=== PATIENT | female | born 1970 | race African-American/Black ===

== ENCOUNTER 2019-05-03 10:10 | Inpatient (IN) | payer BC, OTHER ==
[~2019-05-03] VITALS: Ht 157.5 cm; Wt 63.5 kg
[~2019-05-03 10:10] MED LIST: AUGMENTIN 875-1 EAC1 ORAL
--- NOTE | 2019-05-03 10:15 | NUR ---
ED Nurse Note: Patient walked into Ed from home c/o headaches for 1 month. patient reports it starts from her frontal head and then radiates to the back of her head, 03/25. patient reports she took excedrin earlier today which did not help. patient is alert awake x4 ambulatory steady gait, breathing unlabored and even, speaking in full sentences. patient's BP initially high SBP of 220's ERMD at bedside. patient placed on a bus monitor, on a hospital gown.
[2019-05-03 10:24] VITALS: BP 218/126
[2019-05-03] MEDS ORDERED: Metoclopramide 10mg/2ml Inj IVP ONE (10:30)
[2019-05-03] MEDS ORDERED: DiphenhydrAMINE 50mg/ml Inj IVP ONE (10:30)
[2019-05-03] MEDS ORDERED: Acetaminophen 500mg (ES) tab ORAL ONE (10:30)
--- NOTE | 2019-05-03 10:46 | NUR ---
ED Nurse Note: patient taken to CT
[2019-05-03 10:54] LABS: BASOPHILS % (AUTO) 1.6 % (0.0-2.0); HEMATOCRIT 44.9 % (37.0-47.0); HEMOGLOBIN 14.8 G/DL (12.0-16.0); LYMPHOCYTES % (AUTO) 33.2 % (20.0-45.0); MEAN CORPUSCULAR VOLUME 89 FL (80-99); MONOCYTES % (AUTO) 6.3 % (1.0-10.0); NEUTROPHILS % (AUTO) 58.9 % (45.0-75.0); PLATELET COUNT 418 K/UL (150-450); RED BLOOD COUNT 5.05 M/UL (4.20-5.40); RED CELL DISTRIBUTION WIDTH 11.4 % (11.6-14.8); WHITE BLOOD COUNT 5.4 K/UL (4.8-10.8)
[2019-05-03 10:56] LABS: ANION GAP 5 mmol/L (5-15); BLOOD UREA NITROGEN 5 mg/dL (7-18); CALCIUM 8.7 MG/DL (8.5-10.1); CARBON DIOXIDE 32 MMOL/L (21-32); CHLORIDE 102 MMOL/L (98-107); CREATININE 0.9 MG/DL (0.55-1.30); POTASSIUM 4.5 MMOL/L (3.5-5.1); SODIUM 139 MMOL/L (136-145)
--- NOTE | 2019-05-03 10:57 | NUR ---
ED Nurse Note: patient came back from CT scan.
[2019-05-03 11:00] LABS: ALANINE AMINOTRANSFERASE 26 U/L (12-78); ALBUMIN 4.5 G/DL (3.4-5.0); ALBUMIN/GLOBULIN RATIO 1.3 (1.0-2.7); ALKALINE PHOSPHATASE 50 U/L (46-116); ASPARTATE AMINO TRANSFERASE 18 U/L (15-37); BILIRUBIN,TOTAL 0.5 MG/DL (0.2-1.0)
--- NOTE | 2019-05-03 11:12 | Diagnostic Imaging Report ---
Indications: Headache Technique: Spiral acquisitions obtained through the brain. Angled axial and coronal 5 x 5 mm slices were reconstructed. Total dose length product 1426 mGycm. CTDI vol(s) 62 mGy. Dose reduction achieved using automated exposure control Comparison: None. Findings: No acute intracranial hemorrhage or edema. No mass effect nor midline shift. Normal size ventricles and extra-axial CSF spaces. There is minimal periventricular deep white matter low-attenuation. Otherwise normal marmolejo-white differentiation. Intact calvarium. Visualized orbits and sinuses are unremarkable. The mastoids are clear Impression: Negative for acute cranial bleed or mass effect Minimal periventricular deep white matter low-attenuation, most likely on the basis of chronic microvascular ischemic change The CT scanner at [facility] is accredited by the [employer] and the scans are performed using protocols designed to limit radiation exposure to as low as reasonably achievable to attain images of sufficient resolution adequate for diagnostic evaluation.
--- NOTE | 2019-05-03 11:13 | Diagnostic Imaging Report ---
Indication: Chest pain Technique: One view of the chest Comparison: 02/08/2015 Findings: Lungs and pleural spaces are clear. Heart size is normal. No significant interim change Impression: No acute process
[2019-05-03] MEDS ORDERED: Ketorolac 30mg Inj IV ONE (11:15)
[2019-05-03 11:44] LABS: APPEARANCE,URINE CLEAR; BILIRUBIN, URINE NEGATIVE (NEGATIVE); COLOR,URINE PALE YELLOW; GLUCOSE, URINE (UA) NEGATIVE (NEGATIVE); KETONES,URINE NEGATIVE (NEGATIVE); LEUKOCYTE ESTERASE ,URINE NEGATIVE (NEGATIVE); NITRITE,URINE NEGATIVE (NEGATIVE); PH,URINE 8 (4.5-8.0); PROTEIN,URINE NEGATIVE (NEGATIVE); UROBILINOGEN,URINE NORMAL MG/DL (0.0-1.0)
[2019-05-03 12:01] VITALS: BP 176/93
--- NOTE | 2019-05-03 12:06 | Emergency Room Report ---
History of Present Illness General Chief Complaint: Headache Source: Patient Present Illness HPI 48-year-old female presents ED for evaluation. Complaining of headache x1 month. Frontal, throbbing, nonradiating. States that she takes over-the- counter medications without relief. Denies nausea or vomiting. Denies photophobia. Denies neck stiffness. In triage systolic BP greater than 200. Patient denies any prior history of hypertension. Does not see a PMD. Does not take medications. Denies drug use. Denies chest pain or shortness of breath. No other aggravating relieving factors. Denies any other associated symptoms Allergies: Coded Allergies: No Known Allergies (Unverified , 02/08/15) Patient History Past Medical History: none Past Surgical History: none Pertinent Family History: none Social History: Denies: smoking, alcohol use, drug use Last Menstrual Period: 03/30/19 Now: No Immunizations: UTD Reviewed Nursing Documentation: PMH: Agreed; PSxH: Agreed Nursing Documentation-PMH Past Medical History: No Stated History Hx Cardiac Problems: No Hx Cancer: No Hx Gastrointestinal Problems: No Hx Neurological Problems: No Review of Systems All Other Systems: negative except mentioned in HPI Physical Exam Vital Signs Date Time Temp Pulse Resp B/P (MAP) Pulse Ox O2 Delivery O2 Flow Rate FiO2 05/03/19 10:12 98.1 78 16 238/160 (186) 100 Room Air Sp02 EP Interpretation: reviewed, normal General Appearance: no apparent distress, alert, GCS 15, non-toxic Head: normocephalic, atraumatic Eyes: bilateral eye normal inspection, bilateral eye PERRL ENT: hearing grossly normal, normal pharynx, no angioedema, normal voice Neck: full range of motion, supple, no meningismus, supple/symm/no masses Respiratory: chest non-tender, lungs clear, normal breath sounds, speaking full sentences Cardiovascular #1: regular rate, rhythm, no edema Cardiovascular #2: 2+ carotid (R), 2+ carotid (L), 2+ radial (R), 2+ radial (L) , 2+ dorsalis pedis (R), 2+ dorsalis pedis (L) Gastrointestinal: normal bowel sounds, non tender, soft, non-distended, no guarding, no rebound Rectal: deferred Genitourinary: normal inspection, no CVA tenderness Musculoskeletal: back normal, gait/station normal, normal range of motion, non- tender Neurologic: alert, oriented x3, responsive, motor strength/tone normal, sensory intact, speech normal Psychiatric: judgement/insight normal, memory normal, mood/affect normal, no suicidal/homicidal ideation Reflexes: 3+ bicep (R), 3+ bicep (L), 3+ tricep (R), 3+ tricep (L), 3+ knee (R) , 3+ knee (L) Lymphatic: no adenopathy Procedures Critical Care Time Critical Care Time i. I feel this is a highly complex case requiring extensive working including EKG/Rhythm strip, Xray/CT/US, Blood/urine lab work, repeat exams while in ED, and administration of strong opiates/narcotics for pain control, admission to hospital or close patient follow up. Total time: 45 min bedside evaluation and treatment excludes procedures (EKG). Reason for critical care: hypertensive urgency Possible complications: hypotension, hypertension, [place], shock, arrhythmias, metabolic acidosis, end organ damage, respiratory failure. Interventions: labs, IVFS, EKG, CXR, CT head, hydralazine. BP monitoring Course: Presenting with headache. BP systolic greater than 200. CT head negative. No focal neurological deficits. Troponin negative. EKGnormal sinus rhythm no acute ischemic changes. Given hydralazine with BP improved. Consultations: nursing staff, EMS, family Performed by: Dr Vang Tolerated well condition = serious j. because of unstable vital signs this patient had a condition that could potentially threaten life or limb. I feel this is a critical patient who required my full attention while patient was considered critical. Total Critical Care Time excluding procedures was greater than 45 minutes Medical Decision Making Diagnostic Impression: Primary Impression: Hypertensive urgency Additional Impression: Headache Qualified Codes: R51 - Headache ER Course Hospital Course 48-year-old female presents ED complaining of headache, SBP > 200 Differential diagnoses include: [place]/unstable angina, CVA/TIA, hypertensive urgency Clinical course Patient placed on stretcher. on monitoring and evaluation advisor. After initial history and physical I ordered labs, EKG, chest x-ray, CT Head labs reviewed- no leukocytosis, hemoglobin/hematocrit stable, electrolytes okay , troponins negative. Chest x-ray- unremarkable EKG - NSR, no acute ischemic changes interpreted by me CT head negative Patient required multiple rounds of BP meds to get BP under control. Case discussed with Dr. Cates and he agreed to accept the patient to his service for further care and support I. I feel this is a highly complex case requiring extensive working including EKG/Rhythm strip, Xray/CT/US, Blood/urine lab work, repeat exams while in ED, and administration of strong opiates/narcotics for pain control, admission to hospital or close patient follow up. Diagnosis - hypertensive urgency, headache admitted to telemetry in serious condition Labs Test 05/03/19 10:25 05/03/19 11:22 White Blood Count 5.4 K/UL (4.8-10.8) Red Blood Count 5.05 M/UL (4.20-5.40) Hemoglobin 14.8 G/DL (12.0-16.0) Hematocrit 44.9 % (37.0-47.0) Mean Corpuscular Volume 89 FL (80-99) Mean Corpuscular Hemoglobin 29.3 PG (27.0-31.0) Mean Corpuscular Hemoglobin Concent 32.9 G/DL (32.0-36.0) Red Cell Distribution Width 11.4 % (11.6-14.8) Platelet Count 418 K/UL (150-450) Mean Platelet Volume 6.3 FL (6.5-10.1) Neutrophils (%) (Auto) 58.9 % (45.0-75.0) Lymphocytes (%) (Auto) 33.2 % (20.0-45.0) Monocytes (%) (Auto) 6.3 % (1.0-10.0) Eosinophils (%) (Auto) 0.0 % (0.0-3.0) Basophils (%) (Auto) 1.6 % (0.0-2.0) Sodium Level 139 MMOL/L (136-145) Potassium Level 4.5 MMOL/L (3.5-5.1) Chloride Level 102 MMOL/L (98-107) Carbon Dioxide Level 32 MMOL/L (21-32) Anion Gap 5 mmol/L (5-15) Blood Urea Nitrogen 5 mg/dL (7-18) Creatinine 0.9 MG/DL (0.55-1.30) Estimat Glomerular Filtration Rate > 60 mL/min (>60) Glucose Level 121 MG/DL (74-106) Calcium Level 8.7 MG/DL (8.5-10.1) Total Bilirubin 0.5 MG/DL (0.2-1.0) Aspartate Amino Transf (AST/SGOT) 18 U/L (15-37) Alanine Aminotransferase (ALT/SGPT) 26 U/L (12-78) Alkaline Phosphatase 50 U/L (46-116) Troponin I 0.000 ng/mL (0.000-0.056) Total Protein 8.0 G/DL (6.4-8.2) Albumin 4.5 G/DL (3.4-5.0) Globulin 3.5 g/dL Albumin/Globulin Ratio 1.3 (1.0-2.7) Urine Color Pale yellow Urine Appearance Clear Urine pH 8 (4.5-8.0) Urine Specific [place] 1.010 (1.005-1.035) Urine Protein Negative (NEGATIVE) Urine Glucose (UA) Negative (NEGATIVE) Urine Ketones Negative (NEGATIVE) Urine Blood 5+ (NEGATIVE) Urine Nitrite Negative (NEGATIVE) Urine Bilirubin Negative (NEGATIVE) Urine Urobilinogen Normal MG/DL (0.0-1.0) Urine Leukocyte Esterase Negative (NEGATIVE) Urine RBC 2-4 /HPF (0 - 2) Urine WBC 0 /HPF (0 - 2) Urine Squamous Epithelial Cells Occasional /LPF Urine Bacteria Occasional /HPF (NONE) Urine Mucus Occasional /LPF Urine HCG, Qualitative Negative (NEGATIVE) Urine Opiates Screen Negative (NEGATIVE) Urine Barbiturates Screen Negative (NEGATIVE) Phencyclidine (PCP) Screen Negative (NEGATIVE) Urine Amphetamines Screen Negative (NEGATIVE) Urine Benzodiazepines Screen Negative (NEGATIVE) Urine Cocaine Screen Negative (NEGATIVE) Urine Marijuana (THC) Screen Negative (NEGATIVE) EKG Diagnostic Results Rate: normal Rhythm: NSR ST Segments: no acute changes ASA given to the pt in ED: No Rhythm Strip Diag. Results EP Interpretation: yes Rhythm: NSR, no PVC's, no ectopy Chest X-Ray Diagnostic Results Chest X-Ray Diagnostic Results : Chest X-Ray Ordered: Yes # of Views/Limited/Complete: 1 View Indication: Other EP Interpretation: Yes Interpretation: no consolidation, no effusion, no pneumothorax, no acute cardiopulmonary disease Impression: No acute disease Electronically Signed by: Electronically signed by Eleazar Vang MD CT/MRI/US Diagnostic Results CT/MRI/US Diagnostic Results : Imaging Test Ordered: CT Head Impression Comparison: None. Findings: No acute intracranial hemorrhage or edema. No mass effect nor midline shift. Normal size ventricles and extra-axial CSF spaces. There is minimal periventricular deep white matter low-attenuation. Otherwise normal marmolejo-white differentiation. Intact calvarium. Visualized orbits and sinuses are unremarkable. The mastoids are clear Last Vital Signs Date Time Temp Pulse Resp B/P (MAP) Pulse Ox O2 Delivery O2 Flow Rate FiO2 05/03/19 11:22 210/126 05/03/19 10:24 98.1 71 15 100 Room Air Status: improved Disposition: ADMITTED INPATIENT Condition: Serious Referrals: NON PHYSICIAN (PCP) Eleazar Vang MD May 03, 2019 12:06
[2019-05-03] MEDS ORDERED: NKM (12:33)
[2019-05-03 12:45] VITALS: BP 157/88
--- NOTE | 2019-05-03 14:19 | NUR ---
ED Nurse Note: Report given to Claudia STEIN, endorsed all plan of care to Claudia RODGERS.
[2019-05-03 14:30] VITALS: BP 146/100
--- NOTE | 2019-05-03 14:35 | NUR ---
ED Nurse Note: patient transferred to 2E with all of her belongings on ACLS protocol.
--- NOTE | 2019-05-03 14:50 | NUR ---
NURSE NOTES: pt admitted from the ED. Pt alert and oriented AX04. Pt on school bus monitor has no signs of cardiac or respiratory distress at this time. pt was oriented to her room. Pt bed is locked and in lowest position. Call light is within reach. Pt complaining of headache. Ice bags were placed on head and pt stated they are working. Pt belonging were signed by pt. pt has 2 cell phs at bed side. V/S within normal limits 177/99 T 98.1 HR79 o2100, R18.
--- NOTE | 2019-05-03 16:14 | NUR ---
NURSE NOTES: Call dr. Cates for orders L/m waiting for response.
--- NOTE | 2019-05-03 19:45 | NUR ---
NURSE NOTES: Received pt and report from ANA MARIA Redmond. Observed pt resting in bed with both eyes open and family member at bedside. Pt is A/Ox4. ekg monitor is in placed, IV site intact, asymptomatic, and patent. Bed is in the lowest position and locked. Call light and bedside table within reach. No signs/symptoms of acute distress noted at this time. Will continue plan of care.
--- NOTE | 2019-05-03 19:55 | NUR ---
HAND-OFF: Report given to Zee/rn, pt in stable condition.
[2019-05-03 20:00] VITALS: BP 128/86
--- NOTE | 2019-05-03 20:31 | Consultation ---
DATE OF CONSULTATION: 05/03/2019 CARDIOLOGY CONSULTATION CONSULTING PHYSICIAN: David Gao M.D. REQUESTING PHYSICIAN: Aleksandr Cates M.D. REASON FOR CONSULTATION: Hypertensive urgency. HISTORY OF PRESENT ILLNESS: This is a pleasant 48-year-old female. She has never been diagnosed with hypertension. She was hospitalized here about 4 years ago for an appendectomy. At that time, it was told that her blood pressure was a "little high" and should be followed. However subsequently on all of her other medical evaluations, she has not been told of any significant blood pressure elevation. Over the past 2 months, she has had intermittent headaches. She also noted more severe ones over the past 2 days especially today. Her menstrual cycle began 4 days ago and today, she started having her bleeding as usual with no change from other menstrual cycles. PAST MEDICAL HISTORY: Otherwise unremarkable. MEDICATIONS: Prior to admission, reviewed and reconciled. ALLERGIES: None known. SOCIAL HISTORY: Negative for smoking, alcohol, or substance abuse. FAMILY HISTORY: Notable for hypertension in her mother. REVIEW OF SYSTEMS: A 10-point review of systems performed. All systems negative other than noted above. PHYSICAL EXAMINATION: GENERAL: Well-developed and well-nourished, in no acute distress. VITAL SIGNS: Blood pressure 176/93 in the emergency room. Presently, 166/108, heart rate 81, respiratory rate 18, and afebrile. HEENT: Conjunctivae pink. Fundi benign. Oropharynx clear. NECK: Supple. Jugular venous pressure normal. LUNGS: Clear. CARDIAC: Regular rhythm and rate. Normal S1, S2 with no murmur, rub, or gallop. ABDOMEN: Soft and nontender. EXTREMITIES: No edema. NEUROLOGIC: Nonfocal. DIAGNOSTIC DATA: EKG with sinus rhythm and no abnormalities. CAT scan of the brain revealed no acute process. Chest x-ray, no acute process. LABORATORY DATA: White count 5.4 and hemoglobin 14.8. Chemistry panel within normal limits. Glucose 121. Troponin negative. Urinalysis with 2 to 4 red cells, no white cells, and no protein. IMPRESSION: 1. Hypertensive urgency. 2. Mild elevation of glucose. PLAN: 1. Initiate low-dose amlodipine and titrate. 2. P.r.n. clonidine for breakthrough blood pressure spikes. 3. Echocardiogram. 4. Hemoglobin A1c. 5. Thyroid panel. David Gao M.D. DR: AUSTYN JOB#: [id number] CC:
[2019-05-04] VITALS: BP 131/87
--- NOTE | 2019-05-04 01:59 | NUR ---
NURSE NOTES: Pt is asleep in bed; arousable to voice. No signs/symptoms of acute distress noted at this time. Will continue plan of care.
--- NOTE | 2019-05-04 03:30 | History and Physical Report ---
DATE OF ADMISSION: 05/03/2019 REASON FOR ADMISSION: Headache . HISTORY OF PRESENT ILLNESS: This is a 48-year-old female who has been complaining of headache for the last month. This is described as frontal, throbbing, and nonradiating. She states she has been taking medication regularly. She did not know if she has history of hypertension; however, she was found to have a blood pressure of more than systolic about 200 in the emergency room. She was admitted to the hospital because of not only hypertension but also severe headache. PAST MEDICAL HISTORY: None. PAST SURGICAL HISTORY: None. HOME MEDICATIONS: None. SOCIAL HISTORY: No alcohol or tobacco usage. REVIEW OF SYSTEMS: headaches except as above. Denies any hematemesis, melena, hematochezia, or weight loss. PHYSICAL EXAMINATION: GENERAL: Reveals a 48-year-old female. VITAL SIGNS: Blood pressure at this time is 160/100, heart rate is 74, respirations 18, and afebrile. HEENT: Unremarkable. . ABDOMEN: Soft. NEUROLOGIC: Nonfocal. LABORATORY DATA: Lab testing at this time is unremarkable with normal CBC and BMP. Glucose 121. Toxicology is negative. Urinalysis is negative. IMAGING STUDIES: X-ray of chest and head CT are both negative. IMPRESSION: 1. Hypertensive urgency. 2. Headache. DISCUSSION: Admit to the hospital. We will start p.r.n. clonidine, SCDs, cardiac diet, cardiac consultation. Follow carefully. We will order Tylenol for headache. Aleksandr Cates M.D. DR: GUILLAUME JOB#: [id number] CC:
[2019-05-04 04:00] VITALS: BP 133/91
--- NOTE | 2019-05-04 07:33 | NUR ---
HAND-OFF: Report given to ANA MARIA Redmond. Plan of care endorsed.
[2019-05-04 07:48] LABS: ALANINE AMINOTRANSFERASE 25 U/L (12-78); ALBUMIN 3.9 G/DL (3.4-5.0); ALBUMIN/GLOBULIN RATIO 1.3 (1.0-2.7); ALKALINE PHOSPHATASE 44 U/L (46-116); ANION GAP 9 mmol/L (5-15); ASPARTATE AMINO TRANSFERASE 16 U/L (15-37); BILIRUBIN,TOTAL 0.5 MG/DL (0.2-1.0); BLOOD UREA NITROGEN 8 mg/dL (7-18); CALCIUM 8.6 MG/DL (8.5-10.1); CARBON DIOXIDE 28 MMOL/L (21-32); CHLORIDE 105 MMOL/L (98-107); CREATININE 0.8 MG/DL (0.55-1.30); POTASSIUM 4.2 MMOL/L (3.5-5.1); SODIUM 141 MMOL/L (136-145)
--- NOTE | 2019-05-04 08:16 | NUR ---
NURSE NOTES: pt in bed had a few bites of breakfast. AOx4. Pt on quality assurance monitor no signs of cardiac or respiratory distress at this time. Call light within reach, bed is locked and in lowest position. Will continue follow plan of care, monitor HT pain and labs.
[2019-05-04 08:46] VITALS: BP 115/71
--- NOTE | 2019-05-04 10:13 | Pulmonology Progress Note ---
Assessment/Plan Assessment/Plan IMPRESSION: 1. Hypertensive urgency. 2. Headache. DISCUSSION: DC home PO anti-hypertensives Aleksandr Cates M.D. Subjective Interval Events: Feeling better Constitutional: Reports: no symptoms HEENT: Repors: no symptoms Respiratory: Reports: no symptoms Cardiovascular: Reports: no symptoms Gastrointestinal/Abdominal: Reports: no symptoms Allergies: Coded Allergies: No Known Allergies (Unverified , 02/08/15) Objective Last 24 Hour Vital Signs Date Time Temp Pulse Resp B/P (MAP) Pulse Ox O2 Delivery O2 Flow Rate FiO2 05/04/19 09:39 81 115/71 05/04/19 08:48 Room Air 05/04/19 08:46 98.1 81 20 115/71 (86) 99 05/04/19 06:38 156/103 05/04/19 04:00 98.3 66 17 133/91 (105) 100 05/04/19 04:00 66 05/04/19 00:00 98.4 71 18 131/87 (102) 100 05/04/19 00:00 66 05/03/19 21:00 Room Air 05/03/19 20:00 98.2 87 17 128/86 (100) 99 05/03/19 20:00 86 05/03/19 18:54 87 118/96 05/03/19 18:10 Room Air 05/03/19 17:12 166/108 05/03/19 14:35 98.1 81 18 146/100 100 Room Air 05/03/19 14:30 98.1 81 18 146/100 100 Room Air 05/03/19 12:45 98.1 05/03/19 12:45 98.1 72 18 157/88 100 Room Air 05/03/19 12:44 98.1 05/03/19 12:01 16 176/93 100 05/03/19 11:22 210/126 05/03/19 10:24 98.1 71 15 218/126 100 Room Air Intake and Output 05/03/19 05/04/19 19:00 07:00 Intake Total 460 ml Balance 460 ml Intake Oral 460 ml # Voids 1 General Appearance: no acute distress HEENT: normocephalic Respiratory/Chest: chest wall non-tender, lungs clear Cardiovascular: normal peripheral pulses Abdomen: normal bowel sounds Laboratory Tests 05/03/19 10:25: White Blood Count 5.4, Red Blood Count 5.05, Hemoglobin 14.8, Hematocrit 44.9, Mean Corpuscular Volume 89, Mean Corpuscular Hemoglobin 29.3, Mean Corpuscular Hemoglobin Concent 32.9, Red Cell Distribution Width 11.4L, Platelet Count 418, Mean Platelet Volume 6.3L, Neutrophils (%) (Auto) 58.9, Lymphocytes (%) (Auto) 33.2, Monocytes (%) (Auto) 6.3, Eosinophils (%) (Auto) 0.0, Basophils (%) (Auto ) 1.6, Sodium Level 139, Potassium Level 4.5, Chloride Level 102, Carbon Dioxide Level 32, Anion Gap 5, Blood Urea Nitrogen 5L, Creatinine 0.9, Estimat Glomerular Filtration Rate > 60, Glucose Level 121H, Calcium Level 8.7, Total Bilirubin 0.5, Aspartate Amino Transf (AST/SGOT) 18, Alanine Aminotransferase ( ALT/SGPT) 26, Alkaline Phosphatase 50, Troponin I 0.000, Total Protein 8.0, Albumin 4.5, Globulin 3.5, Albumin/Globulin Ratio 1.3 05/03/19 11:22: Urine Color Pale yellow, Urine Appearance Clear, Urine pH 8, Urine Specific [place] 1.010, Urine Protein Negative, Urine Glucose (UA) Negative, Urine Ketones Negative, Urine Blood 5+H, Urine Nitrite Negative, Urine Bilirubin Negative, Urine Urobilinogen Normal, Urine Leukocyte Esterase Negative, Urine RBC 2-4H, Urine WBC 0, Urine Squamous Epithelial Cells Occasional, Urine Bacteria Occasional, Urine Mucus Occasional, Urine HCG, Qualitative Negative, Urine Opiates Screen Negative, Urine Barbiturates Screen Negative, Phencyclidine (PCP) Screen Negative, Urine Amphetamines Screen Negative, Urine Benzodiazepines Screen Negative, Urine Cocaine Screen Negative, Urine Marijuana (THC) Screen Negative 05/04/19 06:20: Sodium Level 141, Potassium Level 4.2, Chloride Level 105, Carbon Dioxide Level 28, Anion Gap 9, Blood Urea Nitrogen 8, Creatinine 0.8, Estimat Glomerular Filtration Rate > 60, Glucose Level 103, Calcium Level 8.6, Total Bilirubin 0.5 , Aspartate Amino Transf (AST/SGOT) 16, Alanine Aminotransferase (ALT/SGPT) 25, Alkaline Phosphatase 44L, Total Protein 7.0, Albumin 3.9, Globulin 3.1, Albumin/ Globulin Ratio 1.3, Hemoglobin A1c 5.3, Thyroid Stimulating Hormone (TSH) 1.037 Current Medications Medications (Trade) Dose Ordered Sig/Ceasar Route PRN Reason Start Time Stop Time Status Last Admin Dose Admin Acetaminophen (Tylenol) 650 mg Q6H PRN ORAL Mild Pain/Temp > 100.5 05/03/19 17:00 06/02/19 16:59 05/04/19 09:38 Amlodipine Besylate (Norvasc) 5 mg DAILY ORAL 05/04/19 09:00 06/03/19 08:59 05/04/19 09:39 Clonidine HCl (Catapres Tab) 0.1 mg Q4H PRN ORAL SBP>150 05/03/19 17:00 06/02/19 16:59 05/04/19 06:38 Aleksandr Cates MD May 04, 2019 10:13
[2019-05-04] MEDS ORDERED: CLONIDINE0.1 MG GT (10:15)
[2019-05-04] MEDS ORDERED: NORVASC5 MG ORAL (10:15)
--- NOTE | 2019-05-04 10:31 | NUR ---
CASE MANAGEMENT: INITIAL REVIEW 48 YR OLD FEMALE FROM HOME CC: HEADACHE 98.1 78 16 238/160 100% ON RA BUN 5 BG 121 SI: HYPERTENSION URGENCY IS: IV HYDRALAZINE X1 IV REGLAN X1 IV BENADRYL X1 IV TORADOL X1 TYLENOL PO X1 DCP: RETURN HOME WHEN MEDICALLY CLEARED
--- NOTE | 2019-05-04 12:25 | Cardiology Report ---
APPROVED REPORT EXAM: Two-dimensional and M-mode echocardiogram with Doppler and color Doppler. INDICATION Hypertensive Heart Disease M-Mode DIMENSIONS IVSd1.0 (0.7-1.1cm)Left Atrium (MM)3.3 (1.6-4.0cm) LVDd3.9 (3.5-5.6cm)Aortic Root2.7 (2.0-3.7cm) PWd1.0 (0.7-1.1cm)Aortic Cusp Exc.1.9 (1.5-2.0cm) LVDs2.7 (2.5-4.0cm) PWs1.3 cm Normal left ventricular chamber size, systolic function and wall motion. Left ventricular ejection fraction estimated to be 60-65 %. Borderline left ventricular hypertrophy. No evidence of pericardial effusion. All other cardiac chamber sizes are within normal limits. Mild focal aortic valve sclerosis with adequate cusp excursion. Mildly thickened mitral valve leaflets with normal excursion. Mild mitral annulus and aortic root calcification. Normal pulmonic valve structure. Normal tricuspid valve structure. IVC at normal size with physiologic collapse. A color flow and spectral Doppler study was performed and revealed: No evidence of aortic regurgitation. Trace mitral regurgitation. Mitral diastolic velocities suggest reduced left ventricular relaxation c/w mild LV diastolic dysfunction (Grade I). Trace to mild tricuspid regurgitation. Tricuspid systolic velocities suggests peak right ventricular systolic pressure of 25 mmHg. Trace pulmonic regurgitation present.
--- NOTE | 2019-05-04 12:37 | Cardiology Report ---
APPROVED REPORT EKG Measurement Heart [id number] CO [id number] Normal sinus rhythm Normal ECG
[2019-05-04 16:48] VITALS: BP 151/104
--- NOTE | 2019-05-04 16:50 | NUR ---
*-* INSURANCE *-* ALL CLINICALS AND REVIEWS HAVE BEEN FAXED TO: [facility] [phone] ESMER David/[place], SHE PROVIDED TRACKING#[id number] NO CM ASSIGNED PH#[phone] FAX#[phone] REVIEWS/CLINICALS
--- NOTE | 2019-05-04 17:07 | NUR ---
NURSE NOTES: pt discharge in stable condition. IV was taken off, pt is not bleeding. monitor technician off no signs of cardiac distress. Pt was given both of the medication that doctor prescribed amlodipine 5mg and Clonidine 0.1. Pharmacist and nurse went over how to take medications. Pt verbalized understanding and will take medication according to doctor's instructions. Pt was advised to monitor blood pressure daily. Pt signed and took all belonging with her. Pt has already doctor appt scheduled for Friday of next week.
--- NOTE | 2019-05-04 22:45 | Progress Note ---
DATE: 05/04/2019 CARDIOLOGY PROGRESS NOTE SUBJECTIVE: The patient's blood pressure has improved now in the range of 115/71 to 156/103, heart rate in the 60 to 80 range, respiratory rate 18, afebrile. No shortness of breath or chest pain. No palpitations. Monitored rhythm sinus. Echocardiogram notable for normal ejection fraction, normal PA systolic pressure estimate of 25. Trace to mild tricuspid regurgitation. OBJECTIVE: NECK: Jugular venous pressure normal. LUNGS: Clear. CARDIAC: Regular. Normal S1, S2 with no murmur. ABDOMEN: Soft. EXTREMITIES: There is no edema. IMPRESSION: 1. Hypertensive urgency, resolved. 2. Essential hypertension requiring treatment. 3. Headache due to above. 4. Normal menses and current menstrual cycle. PLAN: Discharge home on current oral antihypertensive regimen with outpatient follow up and continued blood pressure monitoring. David Gao M.D. DR: TARA JOB#: [id number] CC:
--- NOTE | 2019-05-05 10:31 | Discharge Summary ---
Discharge Summary Discharge Summary _ DATE OF ADMISSION: 05/03/2019 DATE OF DISCHARGE: 05/04/2019 DISCHARGED BY:Dr. Cates REASON FOR ADMISSION: 48 female with no significant past medical history, presented to emergency room for evaluation due to severe headaches. Patient reported intermittent headaches for the last 2 months. Over the last 2 days headache became more severe. Patient reported left frontal headache, throbbing and nonradiating. She took [id number]-uioftuh medication without any relief. No nausea or vomiting. No photophobia. No neck stiffness. No fevers, no chills. Patient was hospitalized about 4 years ago for appendectomy and at that time she was told that her blood pressure was a little high and she should follow- up. However patient never follow-up on blood pressure. Upon evaluation in the ED blood pressure was 238/160. Pulse oximetry was stable on room air. CT of the head was negative for acute intracranial bleeding or mass-effect. Laboratory work-up revealed no leukocytosis, stable hemoglobin and hematocrit. Stable electrolytes and renal parameters. Troponin negative. EKG revealed normal sinus rhythm, no acute ischemic changes. TSH within normal limits. Urine toxicology screen was negative. Urinalysis revealed no evidence of urinary tract infection. Chest x-ray revealed no acute cardiopulmonary pathology. Patient initially received 10 mg hydralazine IV in emergency department along with Ketorolac and Reglan. Blood pressure did not show significant improvement. Patient received oral dose of amlodipine 5 mg and subsequently admitted to telemetry floor for further management. 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 [employer] followed. Echocardiogram revealed ejection fraction 60 to 65% with borderline left ventricular hypertrophy. No evidence of wall motion abnormality. No evidence of pericardial effusion. Right ventricular systolic pressure of 25. Patient started on low-dose of amlodipine and titrated further. Clonidine provided as needed for breakthrough blood pressure spikes. TSH within normal limits. Hemoglobin A1c- 5.3. Patient was explained that she needs a routine management for essential hypertension. Patient was counseled on low sodium diet. Patient was discharged home on amlodipine and clonidine as needed. Prior to discharge blood pressure 115/71. Due to rapid and unexpected improvement in patient condition, patient was discharged in 1 day. FINAL DIAGNOSES: Hypertensive urgency- resolved Headache DISCHARGE MEDICATIONS: See Medication Reconciliation list. DISCHARGE INSTRUCTIONS: Patient was discharged home. Follow up with primary care provider in one week. I have been assigned to dictate discharge summary for this account. I was not involved in the patient's management. Minnie Guevara NP May 05, 2019 10:31
== END 2019-05-04 17:08 | disposition home or self-care (01) | DRG 199 ==
LOC: EMR 10:25 → 2E 12:56 → EDBEDREQ 14:13 → 2E 14:36
DX: I16.0 Hypertensive urgency (principal); R51 Headache
CPT/HCPCS: 36415; 70450; 71045; 80053; 80307; 81003; 81025; 83036; 84443; 84484; 85025; 93005; 93306; 96374; 96375; 99291; J2765